=== PATIENT | female | born 1985 | race Caucasian/White ===

== ENCOUNTER 2021-09-02 11:20 | Outpatient (CLI) | payer BC | END 2021-09-02 11:21 | disposition home or self-care (01) | LOC: CSHLAB 11:20 | PROVIDERS: ATTEND Obstetrics & Gynecology | DX: Z01.812 Encounter for preprocedural laboratory examination (principal); Z20.822 Contact with and (suspected) exposure to COVID-19; R10.2 Pelvic and perineal pain | CPT/HCPCS: 84703; 85025; 86850; 86900; 86901; U0003; U0005 ==

== ENCOUNTER 2021-09-07 08:10 | Day surgery (SDC) | payer BC ==
[2021-09-01 12:10] VITALS: BMI 19.3
[2021-09-02 12:24] LABS: #Eosinphils 0.2 10x3/uL (0.0-0.5); #Monocytes 0.4 10x3/uL (0.0-1.1); #Neutrophils 2.2 10x3/uL (1.5-8.4); %Basophils 0.8 % (0.0-2.0); %Eosinophils 5.1 % (0.0-6.0); %Lymphocytes 39.2 % (18.0-47.0); %Monocytes 8.4 % (0.0-10.0); %Neutrophils 46.3 % (40.0-75.0); Hemoglobin 12.9 g/dL (12.0-15.5); Mean Corpuscular HGB CONC 32.7 g/dL (32.0-36.0); Mean Corpuscular Hemoglobin 30.1 pg (27.0-33.0); Mean Corpuscular Volume 92.1 fl (81.6-98.3); Mean Platelet Volume 9.4 fl (7.4-10.4); Platelet Count 210 10x3/uL (150-450); RBC Distribution Width 12.4 % (11.5-14.5); Red Blood Cell (RBC) Count 4.28 10x6/uL (3.90-5.03); White Blood Cell (WBC) Count 4.7 10x3/uL (3.5-10.5)
[2021-09-02 12:34] LABS: BHCG - Serum Negative (NEGATIVE); Pregs Control Bar Appear? YES (CONTROL BAR)
[2021-09-02 12:35] LABS: Pregs Control Background? CLEAR/WHITE (CLR/WHITE)
[2021-09-03 00:02] LABS: SARS-CoV-2 PCR by NAA Not Detected (NotDetected)
[2021-09-07] MEDS ORDERED: Famotidine/PF 20 mg/2ml Vial ONE (08:33)
[2021-09-07] MEDS ORDERED: Lidocaine 1% MPF 2 ML VIAL ONE (08:33)
[2021-09-07] MEDS ORDERED: Gabapentin 300 MG CAP ONE (08:33)
[2021-09-07] MEDS ORDERED: CeleCOXIB 100 MG CAP ONE (08:33)
[2021-09-07] MEDS ORDERED: EPINEPHrine 1 MG/ML AMP ONE (09:08)
[2021-09-07] MEDS ORDERED: Bupivacaine PF 0.5% 30 ML VIAL ONE (09:08)
[2021-09-07] MEDS ORDERED: Midazolam HCl 2 mg/2 ml Vial ONE (09:35)
[2021-09-07] MEDS ORDERED: Scopolamine 1.5 mg/72 hour Patch ONE (09:36)
[2021-09-07] MEDS ORDERED: PROPOFOL 20 ML ONE (09:38)
[2021-09-07] MEDS ORDERED: Glycopyrrolate 0.2 MG/ML 5 ML SYRINGE ONE (09:39)
[2021-09-07] MEDS ORDERED: Lidocaine 1% PF 5 ML VIAL ONE (09:39)
[2021-09-07] MEDS ORDERED: Dexamethasone 4 mg/ml Vial ONE (09:39)
[2021-09-07] MEDS ORDERED: Rocuronium Bromide 10 MG/ML (10ML VIAL) ONE (09:39)
[2021-09-07] MEDS ORDERED: PHENYLEPHRINE-NS 100 MCG/ML 10 ML SYRINGE ONE (09:39)
[2021-09-07] MEDS ORDERED: Fentanyl 100 MCG/2 ML VIAL ONE (09:44)
[2021-09-07] MEDS ORDERED: ceFAZolin 2 GM/Dextrose 50 ML IVPB ONE (09:55)
[2021-09-07] MEDS ORDERED: Dexamethasone 20 MG/5 ML VIAL ONE (10:16)
[2021-09-07] MEDS ORDERED: Metoclopramide HCl 10 MG/2 ML VIAL ONE (10:18)
[2021-09-07] MEDS ORDERED: ePHEDrine Sulfate 50 MG/10 ML VIAL ONE (10:25)
[2021-09-07] MEDS ORDERED: Ketorolac Tromethamine 30 MG/ML VIAL ONE (10:40)
[2021-09-07] MEDS ORDERED: SUGAMMADEX SODIUM 200 MG/2 ML VIAL ONE (11:57)
[2021-09-07] MEDS ORDERED: Meperidine HCl/PF 25 MG/ML VIAL ONE (12:32)
[2021-09-07] MEDS ORDERED: traMADol HCl 50 MG TAB ONE ×2 (13:24→16:50)
== END 2021-09-07 18:55 | disposition home or self-care (01) ==
LOC: CSHSDC 08:10
PROVIDERS: ATTEND Obstetrics & Gynecology
PROC: 0UT94ZZ Resection of Uterus, Percutaneous Endoscopic Approach (ICD-10-PCS; principal; 2021-09-07)
PROC: 0UT74ZZ Resection of Bilateral Fallopian Tubes, Percutaneous Endoscopic Approach (ICD-10-PCS; principal; 2021-09-07)
PROC: 0WQF4ZZ Repair Abdominal Wall, Percutaneous Endoscopic Approach (ICD-10-PCS; principal; 2021-09-07)
DX: R10.2 Pelvic and perineal pain (principal); G89.29 Other chronic pain; K42.9 Umbilical hernia without obstruction or gangrene; N94.6 Dysmenorrhea, unspecified; E78.5 Hyperlipidemia, unspecified; Z79.899 Other long term (current) drug therapy; Z88.2 Allergy status to sulfonamides; Z20.822 Contact with and (suspected) exposure to COVID-19
CPT/HCPCS: 84703; 85025; 86850; 86900; 86901; 88307; J0171; J0690; J1100; J1885; J2175; J2250; J2704; J2765; J3010; S0020; S0028; U0003; U0005